=== PATIENT | male | born 1995 | race Asian ===

== ENCOUNTER 2016-07-19 11:32 | Emergency (ER) | payer SELFPAY ==
[2016-07-19 12:21] LABS: SPECIFIC GRAVITY 1.015 (1.001-1.030); URINE BILIRUBIN NEGATIVE (NEGATIVE); URINE BLOOD 3+ (NEGATIVE); URINE GLUCOSE (UA) NEGATIVE (NEGATIVE); URINE LEUKOCYTE ESTERASE NEGATIVE (NEGATIVE); URINE NITRITE NEGATIVE (NEGATIVE); URINE PROTEIN NEGATIVE (NEGATIVE); URINE UROBILINOGEN NORMAL (0-1 mg/dl)
[2016-07-19 12:22] LABS: URINE APPEARANCE CLEAR; URINE COLOR YELLOW
[2016-07-19 12:36] LABS: URINE BACTERIA FEW; URINE EPITHELIAL CELLS 0 /hpf; URINE WBC NEG /hpf
--- NOTE | 2016-07-19 13:27 | CT ---
ABD/PELVIS W/O CON: 07/19/2016 12:55 PM INDICATION: Patient status post snowboarding accident on Monday. Left lower quadrant and flank pain. COMPARISON: None. TECHNIQUE: Contiguous 3 mm transaxial images from a [facility] [address] scanner were obtained from the lung bases through the pubic symphysis without oral or intravenous contrast. Multiplanar images were created at the CT scanner. CT DI: 7.4 DLP: 384.3 FINDINGS: Lung base: No abnormality is seen at the lung bases. There is no pericardial effusion. This examination is limited for the evaluation of solid organs and vascular structures due to the lack of intravenous contrast which is standard for urinary calculus assessment CT. Liver: Normal. Gallbladder: Normal Spleen: Normal. Pancreas: Normal. Adrenal Glands: Probable left adrenal hemorrhage. Right adrenal gland is normal.. Right kidney & ureter: - Calculi - No . - Ureter Calculi - No. - Obstruction / hydronephrosis - No Left kidney & ureter: - Calculi - No . - Ureter Calculi- No . - Obstruction / hydronephrosis - No The unopacified stomach and bowel is within normal limits. Appendix is normal. No lymphadenopathy is seen in the abdomen or pelvis Minimal free fluid in the abdomen along the left paracolic gutter extending into the pelvis.. Moderate renal hematoma is present predominantly along the inferior aspect. This extends from the collecting system, across the cortex. This measures approximately 5.6 x 5.9 x 7.8 cm in AP, transverse and craniocaudal extent on axial image 60 and coronal image 38. Blood products are noted throughout the renal capsule extending towards the mid to superior body of the left kidney. A large percentage of this is hyperdense compatible with fresh blood. Evaluation of the vasculature, and the remainder the renal parenchyma is highly limited given the lack of IV contrast. Assessment for page kidney is also not possible. Urinary bladder: -Bladder Calculi- No . - Bladder is decompressed. - Wall is thin. Bone windows- No lytic or sclerotic lesions. Minimal nondisplaced fracture of L2 transverse process is thought to be present. No other fracture or dislocation. Spine maintains anatomic alignment IMPRESSION: 1. Injury to the left kidney with moderate hematoma extending from the collecting system across the cortex. High density blood products are present within the capsule. The lack of IV contrast severely limits assessment for extent of the patient's injury, or evidence of page kidney. 2. Non-contrast evaluation of the abdomen and pelvis is otherwise without significant abnormality. Findings were called to Dr. Kapadia at approximately 1318 hours on 07/19/2016.
== END 2016-07-19 14:24 | disposition still patient (30) ==
LOC: EDBD 11:32 → ED 11:32
DX: S37.092A Other injury of left kidney, initial encounter (principal); W00.0XXA Fall on same level due to ice and snow, initial encounter; Y93.23 Activity, snow (alpine) (downhill) skiing, snowboarding, sledding, tobogganing and snow tubing; Y92.838 Other recreation area as the place of occurrence of the external cause